=== PATIENT | female | born 1965 | race Caucasian/White ===

== ENCOUNTER 2021-10-19 16:24 | Emergency (ER) | payer OTHER ==
[~2021-10-19] VITALS: Ht 157.5 cm; Wt 50.3 kg
[2021-10-19 16:46] VITALS: BP_SYST 122
--- NOTE | 2021-10-19 17:02 | NUR ---
BIBS WITH C/C OF 2 DAYS OF DIZZINESS. PT REPORTS BEING OUTSIDE AND DIZZY THAT HAS NOT RESOLVED. PT REPORTS BEING VERY HOT WHILE OUTSIDE BY THE POOL. STATES SHE HAS A RINGING FROM RIGHT EAR WITH RIGHT SIDED HEADACHE. PT DX BEFORE WITH [facility] 10 YEARS AGO BUT DOES NOT TAKE ANY MEDICATIONS.
[2021-10-19] MEDS ORDERED: ONDANSETRON HCL 4 MG/2 ML VIAL IVP ONE (17:30)
[2021-10-19] MEDS ORDERED: DIPHENHYDRAMINE INJ 50 MG/ML VIAL IVP ONE (17:30)
[2021-10-19] MEDS ORDERED: NACL 0.9% 1,000 ML IV ONE (17:30)
[2021-10-19 17:40] LABS: BASOPHILS % (AUTO) 0.5 % (0.0-2.0); EOSINOPHILS % (AUTO) 0.1 % (0.0-4.0); HEMATOCRIT 40.7 % (36-48); HEMOGLOBIN 13.7 g/dL (12.0-16.0); LYMPHOCYTES # (AUTO) 1.1 K/uL (1.0-5.5); LYMPHOCYTES % (AUTO) 21.8 % (20.5-51.5); MEAN CORPUSCULAR HEMOGLOBIN 31 pg (27-31); MEAN CORPUSCULAR HGB CONC 34 % (32-36); MEAN CORPUSCULAR VOLUME 91 fL (79.0-98.0); MONOCYTES # (AUTO) 0.3 K/uL (0.0-1.0); MONOCYTES % (AUTO) 6.4 % (1.7-9.3); NEUTROPHILS # (AUTO) 3.5 K/uL (1.8-7.7); NEUTROPHILS % (AUTO) 71.2 % (40.0-70.0); PLATELET COUNT (AUTO) 188 K/uL (130-430); RED BLOOD CELL COUNT(AUTO) 4.47 MIL/uL (4.2-6.2)
--- NOTE | 2021-10-19 18:05 | NUR ---
pt to ED due to dizziness. Per pt hx of same. Per pt / family dizziness started this AM. Pt also w/ reports of pressure / pain to right ear. Pt currently laying on gurney w/ no obvious s/sx distress, RR e/u. Will continue to monitor.
[2021-10-19 18:06] LABS: ANION GAP 8 (5-15); CALCIUM 8.6 mg/dL (8.4-11.0); CHLORIDE 108 mmol/L (98-107); CREATININE 0.78 mg/dL (0.55-1.30); GLUCOSE 118 mg/dL (70-99); POTASSIUM 3.8 mmol/L (3.5-5.1); SODIUM SERUM 143 mmol/L (136-145); UREA NITROGEN, BLOOD 12 mg/dL (8-21)
[2021-10-19 18:15] LABS: ALANINE AMINOTRANSFERASE 19 U/L (12-78); ALBUMIN 3.6 g/dL (3.4-4.8); ASPARTATE AMINOTRANSFERASE 21 U/L (10-37); TOTAL BILIRUBIN 0.3 mg/dL (0.0-1.0)
[2021-10-19 18:56] LABS: GFR AFRICAN AMERICAN 98 mL/min (>90)
--- NOTE | 2021-10-19 19:23 | NUR ---
report given to Fabi WOO
[2021-10-19] MEDS ORDERED: ONDA-8 TL (19:26)
[2021-10-19] MEDS ORDERED: MECL-108 PO (19:26)
[2021-10-19] MEDS ORDERED: ONDANSETRON HCL 4 MG/2 ML VIAL ONE (19:35)
[2021-10-19] MEDS ORDERED: DIPHENHYDRAMINE INJ 50 MG/ML VIAL ONE (19:35)
[2021-10-19 19:52] VITALS: BP_SYST 134
--- NOTE | 2021-11-02 06:01 | NUR ---
ADDENDUM: Nacl 0.9% in 1000ml start time 17:50 end time 18:50
== END 2021-10-19 19:45 | disposition home or self-care (01) ==
LOC: SED 16:24
DX: H81.391 Other peripheral vertigo, right ear (principal); Z79.899 Other long term (current) drug therapy
CPT/HCPCS: 99285; 96374; 70450; 96361; 96375; 80053; 85025; 84484; 36415; 93005; 76376; J1200; J2405; J7030